=== PATIENT | female | born 1995 | race Caucasian/White ===

== ENCOUNTER 2018-05-02 22:53 | Emergency (ER) | payer MEDICAID ==
[~2018-05-02 22:53] MED LIST: AMOX875 PO; BENZ100 PO; FLON0.053; GUAI100S6 PO; MEDR4PAK3 PO; MMW SSP; TOBRA.3%O OU; ZITH250T PO
[2018-05-02 23:12] VITALS: BP 159/87; PULSE 115; RESP 18; TEMP 98.3
[2018-05-03] MEDS ORDERED: BENZONATATE 100 MG CAP PO ONE (02:30)
[2018-05-03] MEDS ORDERED: RESP: ALBUTEROL 2.5 MG/IPRATROPIUM 0.5 MG NEB (SCH) NEB ONE (02:30)
[2018-05-03 03:16] VITALS: BP 157/106; PULSE 94; RESP 18; O2SAT 96
[2018-05-03 03:19] VITALS: O2SAT 96
[2018-05-03] MEDS ORDERED: AZITHROMYCIN 250 MG TAB PO ONE (03:30)
[2018-05-03] MEDS ORDERED: VENTAER INH (03:35)
[2018-05-03] MEDS ORDERED: BENZ100 PO (03:35)
[2018-05-03] MEDS ORDERED: MEDR4PAK PO (03:35)
[2018-05-03] MEDS ORDERED: ZITHTAB PO (03:35)
--- NOTE | 2018-05-03 03:35 | PD ---
HPI Chief Complaint: Cold / Flu Symptoms Time Seen by Provider: 02:19 Travel History International Travel<30 days: No Contact w/Intl Traveler<30days: No Traveled to known affect area: No History of Present Illness HPI 23-year-old female presents to the emergency department complaint of 1 month of persistent cough that she cannot get rid of post sinus drainage and sore throat 1 week. Patient's had subjective fever and chills. Patient has not seen a primary care provider regarding her symptoms. Patient has family history of asthma. Patient is not smoke cigarettes. Patient has had subjective fever and chills. Patient presents now due to persistent cough. Patient is concerned she has bronchitis or pneumonia. Patient denies . PFSH Past Medical History Narrative Medical Negative past medical history no tobacco use nursing notes reviewed Medical History: Denies Significant Hx ?: Not LMP: 04/19/18 : 1 Para: 1 Past Surgical History Surgical History: No Previous Surgery Social History Alcohol Use: No Tobacco Use: No Substance Use: No Allergies-Medications (Allergen,Severity, Reaction): Coded Allergies: No Known Allergies (Unverified Adverse Reaction, Unknown, 05/02/18) Reported Meds & Prescriptions Reported Meds & Active Scripts Active Robitussin Ac (Guaifenesin/Codeine Phosphate) Syrp 5 Ml PO Q6HR PRN Magic Mouthwash-Diphenhy Formula (Lidocaine/Diphenhydr/Alum/Mg/Simeth) Ml 5-10 Ml SSP 5 TIMES A DAY PRN MAGIC MOUTHWASH CONTAINS 1/3 VISCOUS LIDOCAINE, 1/3 MAALOX, AND 1/3 BENADRYL. Amoxil (Amoxicillin) 875 Mg Tab 875 Mg PO BID 10 Days Medrol Dosepak (Methylprednisolone) 4 Mg Godwin 4 Mg PO DIRECTED TAKE DIRECTED Flonase (Fluticasone Propionate) 0.05 % Naspr 2 Spr NA DAILY PRN 2 SPRAYS EACH NOSTRIL Tessalon Perles (Benzonatate) 100 Mg Cap 100 Mg PO Q8 PRN Zithromax Z-Godwin (Azithromycin) 250 Mg Tab 250 Mg PO DIRECTED 5 Days 500 MG (2 TABLETS) PO ON DAY 1, THEN 250 MG (1 TABLET) PO ON DAYS 2 TO 5. Tobrex Opth Soln (Tobramycin Sulfate) 0.3 % Soln 2 Drop OU Q4 7 Days Review of Systems Except as stated in HPI: all other systems reviewed are Neg General / Constitutional: Positive: Fever (Subjective), Chills HENT: Positive: Sore Throat, Congestion Cardiovascular: No: Chest Pain or Discomfort Respiratory: Positive: Cough, Shortness of Breath, Wheezing Gastrointestinal: No: Vomiting Genitourinary: No: Dysuria Musculoskeletal: No: Myalgias, Arthralgias Skin: No Rash Neurologic: No: Weakness, Dizziness, Syncope Psychiatric: No: Anxiety Hematologic/Lymphatic: No: Lymph Node Enlargement Physical Exam Narrative GENERAL: SKIN: Warm and dry. HEAD: Normocephalic. EYES: No scleral icterus. No injection or drainage. NECK: Supple, trachea midline. No JVD or lymphadenopathy. CARDIOVASCULAR: Regular rate and rhythm without murmurs, gallops, or rubs. RESPIRATORY: Breath sounds equal bilaterally. No accessory muscle use. GASTROINTESTINAL: Abdomen soft, non-tender, nondistended. MUSCULOSKELETAL: No cyanosis, or edema. BACK: Nontender without obvious deformity. No CVA tenderness. Data Data Last Documented VS Vital Signs Date Time Temp Pulse Resp B/P (MAP) Pulse Ox O2 Delivery O2 Flow Rate FiO2 05/03/18 03:19 96 21 05/03/18 03:16 94 18 157/106 (123) Room Air 05/02/18 23:12 98.3 Orders Orders Albuterol-Ipratropium Neb (Duoneb Neb) (05/03/18 02:30) Benzonatate (Tessalon) (05/03/18 02:30) Group A Rapid Strep Screen (05/03/18 02:20) Strep Culture (Group A) (05/03/18 02:25) Ed Discharge Order (05/03/18 03:30) Azithromycin (Zithromax) (05/03/18 03:30) MDM Medical Decision Making Medical Screen Exam Complete: Yes Emergency Medical Condition: Yes Medical Record Reviewed: Yes Differential Diagnosis Cough, bronchitis, pneumonia, pharyngitis, sinus Narrative Course Patient given DuoNeb updraft 1; rapid strep antigen negative Patient given first dose of oral antibiotic azithromycin Patient is stable for outpatient management and follow-up with her primary care provider Diagnosis Primary Impression: Rhinosinusitis Additional Impression: Bronchitis Referrals: Primary Care Physician call for appointment Patient Instructions: General Instructions Additional Instructions: Increase fluid hydration Take medications as prescribed Return to the emergency department for concerns or change in condition Follow-up with your primary care provider Take acetaminophen or ibuprofen per package directions as needed for fever 100.4 F or greater Med/Other Pt SpecificInfo: Prescription(s) given Scripts Albuterol 18 GM Inh (Ventolin Hfa 18 GM Inh) 90 Mcg/Act Aer 2 PUFF INH Q4-6H Y for SHORTNESS OF BREATH, #1 INHALER 0 Refills Prov: Maribel Thomason MD 05/03/18 Benzonatate (Tessalon Perles) 100 Mg Cap 100 MG PO TID Y for COUGH, #6 CAP 0 Refills Prov: Maribel Thomason MD 05/03/18 Azithromycin (Zithromax Z-Godwin) 250 Mg Dspk 250 MG PO DIRECTED for Infection, #1 DSPK 0 Refills 500 MG (2 tabs) day 1, then 1 tab days 2-5. Prov: Maribel Thomason MD 05/03/18 Methylprednisolone Dosepak (Medrol Dosepak) 4 Mg Dspk 4 MG PO DIRECTED, #1 DSPK 0 Refills Per Pharmacist direction Prov: Maribel Thomason MD 05/03/18 Disposition: 01 DISCHARGE HOME Condition: Stable Maribel Thomason MD May 03, 2018 03:35
== END 2018-05-03 03:53 | disposition home or self-care (01) ==
LOC: NEPC 22:53
DX: J32.9 Chronic sinusitis, unspecified (principal); J40 Bronchitis, not specified as acute or chronic
CPT/HCPCS: 86403; 87081; 87880; 94664; 99283